=== PATIENT | female | born 1975 | race Caucasian/White ===

== ENCOUNTER 2019-10-07 12:07 | Emergency (ER) | payer BC ==
[~2019-10-07] VITALS: Ht 172.7 cm; Wt 79.1 kg
[2019-10-07 12:08] VITALS: BP 100/63
[2019-10-07] MEDS ORDERED: IBUPROFEN 800 MG TAB PO ONE (13:00)
--- NOTE | 2019-10-07 15:01 | REP ---
LEFT FOOT, FOUR VIEWS: There is no evidence of an acute fracture, dislocation or intrinsic bone disease. IMPRESSION: No fracture or dislocation. Electronically Signed by Orlin Arias MD 10/07/2019 07:06 P
== END 2019-10-07 13:36 | disposition home or self-care (01) ==
LOC: M ED 12:07
DX: S90.32XA Contusion of left foot, initial encounter (principal); Y92.89 Other specified places as the place of occurrence of the external cause; Y93.89 Activity, other specified; Y99.9 Unspecified external cause status; F17.218 Nicotine dependence, cigarettes, with other nicotine-induced disorders; F41.9 Anxiety disorder, unspecified

== ENCOUNTER 2021-01-28 18:53 | Emergency (ER) | payer BC, MEDICAID, OTHER ==
[~2021-01-28] VITALS: Ht 172.7 cm; Wt 75.8 kg
[2021-01-29] MEDS ORDERED: ONDANSETRON 4MG/2ML VIAL IV ONE (00:30)
[2021-01-29] MEDS ORDERED: NS 1,000 ML IV ONE (00:30)
[2021-01-29] MEDS ORDERED: ISOVUE-370 76% 100ML VIAL As Ordered ONE (00:36)
[2021-01-29 00:40] LABS: BASO # 0.1 10^3/uL (0.0-0.2); BASO % 0.7 % (0.0-1.0); EOS # 0.4 10^3/uL (0.0-0.5); EOS % 4.5 % (0.0-3.0); HEMATOCRIT 46.1 % (36.0-47.0); HEMOGLOBIN 15.3 g/dl (12.0-15.5); LYMPH # 3.9 10^3/uL (1.5-5.0); LYMPH % 40.4 % (24.0-44.0); MEAN CORPUSCULAR HEMOGLOBIN 31.8 pg (27.0-33.0); MEAN CORPUSCULAR HGB CONC 33.2 g/dl (32.0-36.5); MEAN CORPUSCULAR VOLUME 95.8 fl (80.0-96.0); MONO # 0.8 10^3/uL (0.0-0.8); MONO % 8.3 % (2.0-8.0); NEUTROPHILS # 4.5 10^3/uL (1.5-8.5); NEUTROPHILS % 45.9 % (36.0-66.0); PLATELET COUNT, AUTOMATED 269 10^3/uL (150-450); RED BLOOD COUNT 4.81 10^6/uL (4.00-5.40); WHITE BLOOD COUNT 9.8 10^3/uL (4.0-10.0)
[2021-01-29 01:17] LABS: ALBUMIN 4.2 GM/DL (3.2-5.2); ALT/SGPT 22 U/L (12-78); BILIRUBIN,DIRECT 0.2 MG/DL (0.0-0.2); BILIRUBIN,TOTAL 0.6 MG/DL (0.2-1.0); BLOOD UREA NITROGEN 12 MG/DL (7-18); CALCIUM LEVEL 9.1 MG/DL (8.5-10.1); CARBON DIOXIDE LEVEL 29 MEQ/L (21-32); CHLORIDE LEVEL 107 MEQ/L (98-107); CREATININE FOR GFR 0.79 MG/DL (0.55-1.30); GLOMERULAR FILTRATION RATE > 60.0 (>58); GLUCOSE, FASTING 75 MG/DL (70-100); LIPASE 179 U/L (73-393); POTASSIUM SERUM 3.8 MEQ/L (3.5-5.1); SODIUM LEVEL 140 MEQ/L (136-145); TOTAL PROTEIN 7.2 GM/DL (6.4-8.2)
--- NOTE | 2021-01-29 02:36 | REPVR ---
PROCEDURE INFORMATION: Exam: CT Abdomen And Pelvis With Contrast Exam date and time: 01/29/2021 12:30 AM Age: 45 years old Clinical indication: Abdominal pain; Localized; Left lower quadrant (llq); Additional info: Llq pain x 4days TECHNIQUE: Imaging protocol: Computed tomography of the abdomen and pelvis with contrast. Radiation optimization: All CT scans at this facility use at least one of these dose optimization techniques: automated exposure control; mA and/or kV adjustment per patient size (includes targeted exams where dose is matched to clinical indication); or iterative reconstruction. Contrast material: ISO; Contrast volume: 100 ml; Contrast route: INTRAVENOUS (IV); COMPARISON: No relevant prior studies available. FINDINGS: LUNG BASES: Minimal atelectasis and/or pulmonary parenchymal scarring. VASCULAR: No abdominoaortic aneurysm, dissection, or retroperitoneal hematoma. There is minimal atherosclerosis. PERITONEAL : No free air or free fluid. GI: No hiatal hernia. The stomach contains some fluid and gas. The stomach is not sufficiently distended to evaluate wall thickening. Non-specific fluid-filled loops of small bowel are seen. No appearance of a small-bowel obstruction. No focal mesenteric inflammation is seen. Small nonspecific mesenteric lymph nodes are noted. There is fluid within proximal portions of the colon. This could be correlated with any diarrheal illness. No pericolonic inflammatory changes seen. Portions of the distal colon and rectum appear slightly thick-walled. This is most pronounced at the sigmoid colon. This could be artifactual secondary to insufficient distention however mild colitis or mild acute diverticulitis cannot be excluded. There is diverticulosis. Follow-up with colonoscopy or fluoroscopic evaluation is advised, as an underlying sigmoid colonic lesion/neoplasia cannot be excluded by this study. HEPATOBILIARY, PANCREAS, SPLEEN: Hepatic length is 19.6 cm. Attenuation of the liver is consistent with steatosis. Surgical clips are seen in the gallbladder fossa. No biliary dilation. No pancreatic inflammation. Spleen not enlarged. ADRENALS, KIDNEYS, BLADDER, RETROPERITONEAL: Adrenals within normal limits. No hydronephrosis. Symmetric renal enhancement. No perinephric stranding or fluid. No perivesical stranding. No bladder wall thickening. PELVIC: The uterus is not visualized and may have been removed. Gas within the vagina may be iatrogenic. The ovaries are not conclusively identified by this study. MUSCULOSKELETAL: Mild superior endplate compression fracture deformity at T12 of indeterminate acuity. Mild degenerative change of the lumbar spine. Sclerosis and degenerative changes at the right sacroiliac joint noted. IMPRESSION: Mild sigmoid colonic wall thickening may be secondary to colitis or minimal diverticulitis. Gastrointestinal findings and recommendations are discussed above. T12 compression fracture deformity of indeterminate acuity. Other incidental findings discussed above. Electronically signed by: Sathya Arteaga On 01/29/2021 02:35:12 AM
[2021-01-29] MEDS ORDERED: CIPROFLOXACIN 500MG TABLET PO ONE (03:15)
[2021-01-29] MEDS ORDERED: metroNIDAZOLE (FLAGYL) 500MG TABLET PO ONE (03:15)
[2021-01-29] MEDS ORDERED: METR-265 PO (03:16)
[2021-01-29] MEDS ORDERED: ONDA4TAB6 PO (03:16)
[2021-01-29] MEDS ORDERED: KETO10TAB PO (03:16)
[2021-01-29] MEDS ORDERED: CIPR-249 PO (03:16)
[2021-01-29 03:30] VITALS: BP 133/78
== END 2021-01-29 03:54 | disposition home or self-care (01) ==
LOC: M ED 18:53
DX: K57.92 Diverticulitis of intestine, part unspecified, without perforation or abscess without bleeding (principal); Z87.891 Personal history of nicotine dependence
CPT/HCPCS: 74177; 80048; 80076; 83605; 83690; 85025; 96361; 96374; 99284; J2405; Q9967

== ENCOUNTER → 2021-03-25 | Outpatient (CLI) | payer OTHER ==
[~2021-03-25] MED LIST: CIPR-249 PO; KETO10TAB PO; METR-265 PO; ONDA4TAB6 PO
[2021-03-25 18:12] LABS: CHOLESTEROL RISK RATIO 3.636 (<5)
[2021-03-25 18:13] LABS: HEMOGLOBIN A1c 4.9 %
== END ==
LOC: M PLALAB 14:57
PROVIDERS: ATTEND Student in an Organized Health Care Education/Training Program
DX: Z13.1 Encounter for screening for diabetes mellitus (principal); Z13.220 Encounter for screening for lipoid disorders

== ENCOUNTER → 2021-03-25 | Outpatient (REF) | payer OTHER | LOC: M SFHCPLAZ 14:59 | DX: Z13.1 Encounter for screening for diabetes mellitus (principal); Z13.220 Encounter for screening for lipoid disorders ==

== ENCOUNTER → 2021-04-27 | Outpatient (CLI) | payer OTHER ==
[~2021-04-27] MED LIST changes: +ISOVUE-370 76% 100ML VIAL As Ordered ONE
--- NOTE | 2021-04-28 06:04 | REP ---
INDICATION: LT LOWER QUADRANT PAIN. COMPARISON: 01/29/2021, 12/21/2013 TECHNIQUE: Axial contrast-enhanced images from the lung bases to the pubic symphysis using 100 cc Isovue 370 intravenous contrast material. Coronal and sagittal reformations obtained. This CT examination was performed using the following dose reduction techniques: Automated exposure control, adjustment of mA and/or kv according to the patient's size, and the use of iterative reconstruction technique. FINDINGS: Liver, spleen, pancreas, bilateral adrenal glands and kidneys are normal. Evidence for prior cholecystectomy noted. The enteric system including stomach, small, and large bowel appears normal. No evidence for obstruction or acute inflammatory process. Normal terminal ileum and cecum are identified in the right lower quadrant. Sigmoid diverticulosis without evidence for acute diverticulitis. Pelvis demonstrates normal bladder and suspected prior hysterectomy. No ascites. No free air. No intraperitoneal or retroperitoneal adenopathy. Abdominal aorta and vasculature appear normal. Musculoskeletal structures are intact and without acute osseous abnormality. Subtle nonacute T12 compression deformity unchanged. IMPRESSION: No acute abdominopelvic pathology appreciated. Significant sigmoid diverticulosis without obvious acute diverticulitis. <Electronically signed by Miguel Douglas > 04/28/21 0600
== END ==
LOC: M RAD 09:02
PROVIDERS: ATTEND Surgery
DX: K57.30 Diverticulosis of large intestine without perforation or abscess without bleeding (principal)
CPT/HCPCS: 74177; Q9967

== ENCOUNTER → 2021-05-28 | Outpatient (CLI) | payer OTHER ==
[~2021-05-28] MED LIST changes: +ACET-897 PO; +CVS1CHW13 PO; -ISOVUE-370 76% 100ML VIAL As Ordered ONE
== END ==
LOC: M LABSMTC 10:44
PROVIDERS: ATTEND Anesthesiology
DX: Z01.818 Encounter for other preprocedural examination (principal); Z11.52 Encounter for screening for COVID-19

== ENCOUNTER → 2021-08-17 | Outpatient (CLI) | payer OTHER ==
[2021-08-17 13:04] LABS: HEMATOCRIT 42.5 % (36.0-47.0); MEAN CORPUSCULAR HEMOGLOBIN 32.3 pg (27.0-33.0); MEAN CORPUSCULAR HGB CONC 32.9 g/dl (32.0-36.5); MEAN CORPUSCULAR VOLUME 97.9 fl (80.0-96.0); PLATELET COUNT, AUTOMATED 254 10^3/uL (150-450); RED BLOOD COUNT 4.34 10^6/uL (4.00-5.40); WHITE BLOOD COUNT 8.5 10^3/uL (4.0-10.0)
[2021-08-17 13:33] LABS: ALBUMIN 4.1 GM/DL (3.2-5.2); ALT/SGPT 34 U/L (12-78); BILIRUBIN,TOTAL 0.6 MG/DL (0.2-1.0); BLOOD UREA NITROGEN 5 MG/DL (7-18); CALCIUM LEVEL 9.2 MG/DL (8.5-10.1); CARBON DIOXIDE LEVEL 29 MEQ/L (21-32); CHLORIDE LEVEL 107 MEQ/L (98-107); CREATININE FOR GFR 0.69 MG/DL (0.55-1.30); FREE T4 0.95 NG/DL (0.76-1.46); GLOMERULAR FILTRATION RATE > 60.0 (>58); GLUCOSE, FASTING 83 MG/DL (70-100); SODIUM LEVEL 140 MEQ/L (136-145); TOTAL PROTEIN 6.8 GM/DL (6.4-8.2)
[2021-08-17 14:07] LABS: HEMOGLOBIN A1c 4.7 %
== END ==
LOC: M LAB 12:09
PROVIDERS: ATTEND Nurse Practitioner Family
DX: R10.32 Left lower quadrant pain (principal); Z13.1 Encounter for screening for diabetes mellitus; Z13.29 Encounter for screening for other suspected endocrine disorder

== ENCOUNTER 2021-10-11 16:34 | Emergency (ER) | payer OTHER ==
[~2021-10-11] VITALS: Ht 172.7 cm; Wt 71.5 kg
[2021-10-11 19:26] VITALS: BP 147/87
== END 2021-10-11 20:03 | disposition home or self-care (01) ==
LOC: M ED 16:34
DX: S60.921A Unspecified superficial injury of right hand, initial encounter (principal); W20.8XXA Other cause of strike by thrown, projected or falling object, initial encounter; Y92.9 Unspecified place or not applicable; Y93.9 Activity, unspecified; Y99.9 Unspecified external cause status; E11.9 Type 2 diabetes mellitus without complications; Z79.4 Long term (current) use of insulin

== ENCOUNTER → 2021-10-25 | Outpatient (CLI) | payer OTHER ==
[2021-10-25 14:24] LABS: BASO # 0.1 10^3/uL (0.0-0.2); BASO % 1.1 % (0.0-1.0); EOS # 0.2 10^3/uL (0.0-0.5); EOS % 2.6 % (0.0-3.0); HEMATOCRIT 48.8 % (36.0-47.0); HEMOGLOBIN 15.8 g/dl (12.0-15.5); LYMPH # 2.2 10^3/uL (1.5-5.0); LYMPH % 33.2 % (24.0-44.0); MEAN CORPUSCULAR HEMOGLOBIN 32.2 pg (27.0-33.0); MEAN CORPUSCULAR HGB CONC 32.4 g/dl (32.0-36.5); MEAN CORPUSCULAR VOLUME 99.6 fl (80.0-96.0); MONO # 0.6 10^3/uL (0.0-0.8); MONO % 9.1 % (2.0-8.0); NEUTROPHILS # 3.5 10^3/uL (1.5-8.5); NEUTROPHILS % 53.8 % (36.0-66.0); PLATELET COUNT, AUTOMATED 285 10^3/uL (150-450); WHITE BLOOD COUNT 6.5 10^3/uL (4.0-10.0)
[2021-10-25 14:46] LABS: ALBUMIN 4.2 GM/DL (3.2-5.2); ALT/SGPT 21 U/L (12-78); BILIRUBIN,TOTAL 0.7 MG/DL (0.2-1.0); BLOOD UREA NITROGEN 11 MG/DL (7-18); CALCIUM LEVEL 9.1 MG/DL (8.5-10.1); CARBON DIOXIDE LEVEL 29 MEQ/L (21-32); CHLORIDE LEVEL 105 MEQ/L (98-107); CREATININE FOR GFR 0.85 MG/DL (0.55-1.30); GLOMERULAR FILTRATION RATE > 60.0 (>58); GLUCOSE, FASTING 76 MG/DL (70-100); POTASSIUM SERUM 4.7 MEQ/L (3.5-5.1); SODIUM LEVEL 137 MEQ/L (136-145); TOTAL PROTEIN 6.7 GM/DL (6.4-8.2)
== END ==
LOC: M PLALAB 09:52
PROVIDERS: ATTEND Nurse Practitioner
DX: N80.9 Endometriosis, unspecified (principal); R10.2 Pelvic and perineal pain

== ENCOUNTER → 2021-10-31 | Outpatient (CLI) | payer OTHER | LOC: M LABSMTC 09:59 | PROVIDERS: ATTEND Nurse Practitioner | DX: Z20.822 Contact with and (suspected) exposure to COVID-19 (principal) ==

== ENCOUNTER 2021-11-11 09:33 | Inpatient (IN) | payer OTHER ==
[~2021-11-11] VITALS: Ht 172.7 cm; Wt 70.5 kg
[2021-11-11] MEDS ORDERED: NS 1,000 ML IV ONE (10:30)
[2021-11-11] MEDS ORDERED: KETOROLAC 30 MG/ML 1ML VIAL IV ONE (10:35)
[2021-11-11] MEDS ORDERED: ONDANSETRON 4MG 2ML VIAL IV ONE (10:35)
[2021-11-11 10:57] LABS: BASO # 0.1 10^3/uL (0.0-0.2); BASO % 0.2 % (0.0-1.0); HEMATOCRIT 45.8 % (36.0-47.0); HEMOGLOBIN 15.1 g/dl (12.0-15.5); LYMPH # 2.1 10^3/uL (1.5-5.0); LYMPH % 7.2 % (24.0-44.0); MEAN CORPUSCULAR HEMOGLOBIN 31.3 pg (27.0-33.0); MONO % 7.7 % (2.0-8.0); NEUTROPHILS # 24.7 10^3/uL (1.5-8.5); PLATELET COUNT, AUTOMATED 505 10^3/uL (150-450); RED BLOOD COUNT 4.82 10^6/uL (4.00-5.40); WHITE BLOOD COUNT 29.4 10^3/uL (4.0-10.0)
[2021-11-11 11:18] LABS: MONO # 2.3 10^3/uL (0.0-0.8)
[2021-11-11 11:19] LABS: ERYTHROCYTE SEDIMENTATION RATE 33 mm/hr (0-20)
[2021-11-11 11:25] LABS: ALBUMIN 3.7 GM/DL (3.2-5.2); BILIRUBIN,DIRECT 0.4 MG/DL (0.0-0.2); BILIRUBIN,TOTAL 0.9 MG/DL (0.2-1.0); C REACTIVE PROTEIN QUANTITATIV 18.6 MG/DL (0.00-0.30); TOTAL PROTEIN 7.9 GM/DL (6.4-8.2)
[2021-11-11 11:33] LABS: AMPHETAMINES LEVEL URINE NEGATIVE (NEGATIVE); BARBITURATES URINE NEGATIVE (NEGATIVE); BENZODIAZEPINES URINE NEGATIVE (NEGATIVE); CANNABINOIDS URINE POSITIVE (NEGATIVE); COCAINE METABOLITE URINE NEGATIVE (NEGATIVE); METHADONE URINE NEGATIVE (NEGATIVE); OPIATES URINE NEGATIVE (NEGATIVE); PHENCYCLIDINE URINE NEGATIVE (NEGATIVE)
[2021-11-11] MEDS ORDERED: PIPERACILLIN/TAZOBACTAM SOD 3.375 GM in D5W MINI-BAG PLUS 50 ML IV ONE (11:50)
[2021-11-11] MEDS ORDERED: NS IV ONE (11:50)
[2021-11-11] MEDS ORDERED: ACETAMINOPHEN 325 MG TAB PO ONE (11:55)
[2021-11-11] MEDS: GASTROGRAFIN SOLUTION 30ML PO SCH ×2 (12:19→13:49)
[2021-11-11] MEDS ORDERED: ISOVUE-370 76% 100ML VIAL As Ordered ONE (13:49)
[2021-11-11 14:31] LABS: RSV AMPLIFICATION NEGATIVE (NEGATIVE)
[2021-11-11] MEDS ORDERED: METOCLOPRAMIDE INJ 10MG/2ML VIAL (J2765 PER 1) IV ONE (14:45)
[2021-11-11] MEDS ORDERED: MORPHINE 2 MG/ML 1ML VIAL IV PRN (17:05)
[2021-11-11] MEDS ORDERED: BUPIVACAINE HCL 0.25% 30ML VIAL As Ordered ONE (17:17)
[2021-11-11] MEDS ORDERED: ZOSYN 3.375GM VIAL As Ordered ONE (17:17)
[2021-11-11] MEDS ORDERED: LIDOCAINE 2% INJ 100 MG/5 ML SYRINGE As Ordered ONE (17:59)
[2021-11-11] MEDS ORDERED: dexameTHASONE 4 MG/ML 1ML VIAL (J1100 PER 1MG) As Ordered ONE (17:59)
[2021-11-11] MEDS ORDERED: MIDAZOLAM INJ 2MG/2ML VIAL (J2250 PER 1MG) As Ordered ONE (17:59)
[2021-11-11] MEDS ORDERED: propofoL 200 MG/20 ML VIAL As Ordered ONE (17:59)
[2021-11-11] MEDS ORDERED: ROCURONIUM BROMIDE 50 MG/5 ML VIAL As Ordered ONE ×3 (17:59→20:49)
[2021-11-11] MEDS ORDERED: fentaNYL 250 MCG/5 ML INJECTION As Ordered ONE (17:59)
[2021-11-11] MEDS ORDERED: ONDANSETRON 4MG 2ML VIAL As Ordered ONE (17:59)
[2021-11-11] MEDS ORDERED: SUCCINYLCHOLINE 100 MG/5 ML SYRINGE (J0330) As Ordered ONE (17:59)
[2021-11-11] MEDS: PIPERACILLIN/TAZOBACTAM SOD 3.375 GM in D5W MINI-BAG PLUS 50 ML IV SCH (18:05)
[2021-11-11] MEDS ORDERED: ACETAMINOPHEN 1000MG 100ML IV BTL (OFIRMEV) (J0131 PER 10MG) As Ordered ONE (18:58)
[2021-11-11] MEDS ORDERED: HYDROmorphone HCL 2MG/ML 1ML VIAL As Ordered ONE (19:08)
[2021-11-11] MEDS ORDERED: SUGAMMADEX SODIUM 500 MG/5 ML VIAL (BRIDION) As Ordered ONE (20:50)
[2021-11-11] MEDS ORDERED: oxyCODONE 5MG TAB PO PRN (21:30)
[2021-11-11] MEDS ORDERED: LR 1,000 ML IV SCH (21:30)
[2021-11-11] MEDS ORDERED: ONDANSETRON 4MG 2ML VIAL IV PRN (21:30)
[2021-11-11] MEDS: fentaNYL 100 MCG/2 ML INJECTION IV PRN ×4 (22:10→22:27)
[2021-11-11] MEDS: ONDANSETRON 4MG 2ML VIAL IV PRN (22:12)
[2021-11-11] MEDS: HYDROMORPHONE HCL 0.5 MG/ 0.5 ML SYRINGE (J1170 PER 1) IV PRN ×2 (22:36→22:41)
[2021-11-11 23:29] VITALS: BP 148/83
[2021-11-12] VITALS (9 sets, daily range): BP systolic 140–155; BP diastolic 80–90
[2021-11-12] MEDS: PIPERACILLIN/TAZOBACTAM SOD 3.375 GM in D5W MINI-BAG PLUS 50 ML IV SCH ×4 (00:09→18:29)
[2021-11-12] MEDS: NS 1,000 ML IV SCH ×3 (00:17→09:05)
[2021-11-12] MEDS: HYDROMORPHONE HCL 0.5 MG/ 0.5 ML SYRINGE (J1170 PER 1) IV PRN ×4 (02:48→15:19)
[2021-11-12] MEDS ORDERED: HOME MED LIST COMPLETE! XX SCH (05:05)
[2021-11-12] MEDS ORDERED: META28.32 PO (05:05)
[2021-11-12] MEDS ORDERED: IBUP80TA PO (05:05)
[2021-11-12] MEDS ORDERED: ONDA4TAB6 SL (05:05)
[2021-11-12] MEDS: ONDANSETRON 4MG 2ML VIAL IV PRN ×2 (06:03→18:29)
[2021-11-12 09:30] LABS: BASO # 0.1 10^3/uL (0.0-0.2); BASO % 0.3 % (0.0-1.0); EOS % 0.3 % (0.0-3.0); HEMATOCRIT 37.7 % (36.0-47.0); LYMPH # 2.3 10^3/uL (1.5-5.0); LYMPH % 15.8 % (24.0-44.0); MEAN CORPUSCULAR HEMOGLOBIN 30.9 pg (27.0-33.0); MEAN CORPUSCULAR HGB CONC 32.1 g/dl (32.0-36.5); MEAN CORPUSCULAR VOLUME 96.4 fl (80.0-96.0); MONO # 1.1 10^3/uL (0.0-0.8); MONO % 7.3 % (2.0-8.0); NEUTROPHILS # 11.1 10^3/uL (1.5-8.5); NEUTROPHILS % 75.7 % (36.0-66.0); PLATELET COUNT, AUTOMATED 444 10^3/uL (150-450); RED BLOOD COUNT 3.91 10^6/uL (4.00-5.40); WHITE BLOOD COUNT 14.6 10^3/uL (4.0-10.0)
[2021-11-12 09:34] LABS: HEMOGLOBIN 12.1 g/dl (12.0-15.5)
[2021-11-12 10:10] LABS: ALT/SGPT 19 U/L (12-78); BILIRUBIN,TOTAL 0.5 MG/DL (0.2-1.0); BLOOD UREA NITROGEN 15 MG/DL (7-18); CALCIUM LEVEL 7.8 MG/DL (8.5-10.1); CARBON DIOXIDE LEVEL 29 MEQ/L (21-32); CHLORIDE LEVEL 109 MEQ/L (98-107); CREATININE FOR GFR 0.59 MG/DL (0.55-1.30); GLOMERULAR FILTRATION RATE > 60.0 (>58); GLUCOSE, FASTING 89 MG/DL (70-100); POTASSIUM SERUM 3.6 MEQ/L (3.5-5.1); SODIUM LEVEL 144 MEQ/L (136-145); TOTAL PROTEIN 5.3 GM/DL (6.4-8.2)
[2021-11-12] MEDS: ENOXAPARIN 40MG/0.4ML SYRINGE (J1650 PER 10MG) SC SCH (10:43)
[2021-11-12] MEDS: KETOROLAC 30 MG/ML 1ML VIAL IV SCH ×2 (11:37→18:30)
[2021-11-12] MEDS: KCL 20MEQ IN 0.45NS 1000ML 1,000 ML IV SCH (13:45)
[2021-11-13] MEDS: PIPERACILLIN/TAZOBACTAM SOD 3.375 GM in D5W MINI-BAG PLUS 50 ML IV SCH ×5 (00:18→23:41)
[2021-11-13] MEDS: KETOROLAC 30 MG/ML 1ML VIAL IV SCH ×5 (00:19→23:42)
[2021-11-13 02:00] VITALS: BP 138/87
[2021-11-13] MEDS: KCL 20MEQ IN 0.45NS 1000ML 1,000 ML IV SCH ×2 (03:56→16:40)
[2021-11-13 06:00] VITALS: BP 124/87
[2021-11-13 08:33] LABS: BASO % 0.3 % (0.0-1.0); EOS # 0.2 10^3/uL (0.0-0.5); EOS % 1.7 % (0.0-3.0); HEMATOCRIT 33.6 % (36.0-47.0); LYMPH # 2.3 10^3/uL (1.5-5.0); LYMPH % 17.2 % (24.0-44.0); MEAN CORPUSCULAR HEMOGLOBIN 31.9 pg (27.0-33.0); MEAN CORPUSCULAR HGB CONC 32.7 g/dl (32.0-36.5); MEAN CORPUSCULAR VOLUME 97.4 fl (80.0-96.0); MONO # 0.9 10^3/uL (0.0-0.8); NEUTROPHILS # 9.7 10^3/uL (1.5-8.5); NEUTROPHILS % 72.6 % (36.0-66.0); PLATELET COUNT, AUTOMATED 408 10^3/uL (150-450); RED BLOOD COUNT 3.45 10^6/uL (4.00-5.40); WHITE BLOOD COUNT 13.4 10^3/uL (4.0-10.0)
[2021-11-13] MEDS: ENOXAPARIN 40MG/0.4ML SYRINGE (J1650 PER 10MG) SC SCH (09:07)
[2021-11-13 09:15] LABS: BLOOD UREA NITROGEN 23 MG/DL (7-18); CALCIUM LEVEL 8.6 MG/DL (8.5-10.1); CARBON DIOXIDE LEVEL 32 MEQ/L (21-32); CHLORIDE LEVEL 105 MEQ/L (98-107); CREATININE FOR GFR 0.58 MG/DL (0.55-1.30); GLOMERULAR FILTRATION RATE > 60.0 (>58); GLUCOSE, FASTING 69 MG/DL (70-100); POTASSIUM SERUM 3.8 MEQ/L (3.5-5.1); SODIUM LEVEL 144 MEQ/L (136-145)
[2021-11-13 14:00] VITALS: BP 125/84
[2021-11-13 22:00] VITALS: BP 122/75
[2021-11-13] MEDS: HYDROMORPHONE HCL 0.5 MG/ 0.5 ML SYRINGE (J1170 PER 1) IV PRN (22:10)
[2021-11-14 02:00] VITALS: BP 123/82
[2021-11-14] MEDS: KETOROLAC 30 MG/ML 1ML VIAL IV SCH ×3 (05:36→17:33)
[2021-11-14 06:00] VITALS: BP 138/81
[2021-11-14] MEDS: PIPERACILLIN/TAZOBACTAM SOD 3.375 GM in D5W MINI-BAG PLUS 50 ML IV SCH ×3 (06:07→17:33)
[2021-11-14] MEDS: ENOXAPARIN 40MG/0.4ML SYRINGE (J1650 PER 10MG) SC SCH (09:00)
[2021-11-14] MEDS: KCL 20MEQ IN 0.45NS 1000ML 1,000 ML IV SCH (09:00)
[2021-11-14 10:00] VITALS: BP 124/69
[2021-11-14 14:00] VITALS: BP 150/80
[2021-11-14] MEDS ORDERED: LORazepam 1 MG TAB PO PRN (15:40)
[2021-11-14 18:00] VITALS: BP 135/77
[2021-11-14 20:51] VITALS: BP 143/82
[2021-11-15] MEDS: KCL 20MEQ IN 0.45NS 1000ML 1,000 ML IV SCH ×2 (00:15→09:41)
[2021-11-15] MEDS: KETOROLAC 30 MG/ML 1ML VIAL IV SCH ×5 (00:30→23:04)
[2021-11-15] MEDS: PIPERACILLIN/TAZOBACTAM SOD 3.375 GM in D5W MINI-BAG PLUS 50 ML IV SCH ×5 (00:31→23:04)
[2021-11-15 02:00] VITALS: BP 141/80
[2021-11-15 04:53] VITALS: BP 139/80
[2021-11-15] MEDS: ENOXAPARIN 40MG/0.4ML SYRINGE (J1650 PER 10MG) SC SCH (09:41)
[2021-11-15 10:00] VITALS: BP 140/78
[2021-11-15] MEDS ORDERED: KCL 20MEQ IN D5/0.45NS 1000ML 1,000 ML IV SCH (10:00)
[2021-11-15] MEDS: PANTOPRAZOLE 40MG VIAL IV SCH ×2 (11:09→20:42)
[2021-11-15] MEDS ORDERED: LIDOCAINE 1% MDV 20ML VIAL As Ordered ONE (14:09)
[2021-11-15 16:00] VITALS: BP 123/75
[2021-11-15] MEDS: ONDANSETRON 4MG 2ML VIAL IV PRN (17:11)
[2021-11-15] MEDS ORDERED: AMINO AC/ELECTROLYTE/DEX/CALC 2,566 ML IV SCH (18:00)
[2021-11-15] MEDS: SODIUM CHLORIDE 0.9% INJ 10 ML SYR IV SCH (18:00)
[2021-11-15] MEDS: INSULIN LISPRO (NovoLOG) PER UNIT SC SCH (18:00)
[2021-11-15 18:30] VITALS: BP 117/75
[2021-11-15] MEDS: SUCRALFATE SUSP 1GM/10ML UD PO SCH ×2 (19:00→23:04)
[2021-11-15 20:37] VITALS: BP 119/75
[2021-11-15] MEDS: SODIUM CHLORIDE 0.9% INJ 10 ML SYR IV PRN (20:44)
[2021-11-16] VITALS (13 sets, daily range): BP systolic 110–127; BP diastolic 60–76
[2021-11-16] MEDS: SODIUM CHLORIDE 0.9% INJ 10 ML SYR IV PRN ×3 (00:49→12:59)
[2021-11-16] MEDS: SUCRALFATE SUSP 1GM/10ML UD PO SCH ×3 (05:37→17:43)
[2021-11-16] MEDS: KETOROLAC 30 MG/ML 1ML VIAL IV SCH ×3 (05:38→17:43)
[2021-11-16] MEDS: PIPERACILLIN/TAZOBACTAM SOD 3.375 GM in D5W MINI-BAG PLUS 50 ML IV SCH ×3 (05:38→17:44)
[2021-11-16] MEDS: INSULIN LISPRO (NovoLOG) PER UNIT SC SCH ×4 (06:13→18:00)
[2021-11-16 06:26] LABS: BASO % 0.3 % (0.0-1.0); EOS # 0.4 10^3/uL (0.0-0.5); EOS % 3.2 % (0.0-3.0); HEMATOCRIT 24.7 % (36.0-47.0); LYMPH # 2.3 10^3/uL (1.5-5.0); LYMPH % 17.7 % (24.0-44.0); MEAN CORPUSCULAR HEMOGLOBIN 32.1 pg (27.0-33.0); MEAN CORPUSCULAR HGB CONC 32.4 g/dl (32.0-36.5); MEAN CORPUSCULAR VOLUME 99.2 fl (80.0-96.0); MONO # 0.9 10^3/uL (0.0-0.8); MONO % 6.6 % (2.0-8.0); NEUTROPHILS # 9.3 10^3/uL (1.5-8.5); NEUTROPHILS % 71.3 % (36.0-66.0); PLATELET COUNT, AUTOMATED 470 10^3/uL (150-450); RED BLOOD COUNT 2.49 10^6/uL (4.00-5.40)
[2021-11-16 06:57] LABS: BLOOD UREA NITROGEN 26 MG/DL (7-18); CALCIUM LEVEL 7.8 MG/DL (8.5-10.1); CARBON DIOXIDE LEVEL 31 MEQ/L (21-32); CHLORIDE LEVEL 106 MEQ/L (98-107); CREATININE FOR GFR 0.53 MG/DL (0.55-1.30); GLOMERULAR FILTRATION RATE > 60.0 (>58); GLUCOSE, FASTING 123 MG/DL (70-100); POTASSIUM SERUM 3.7 MEQ/L (3.5-5.1); SODIUM LEVEL 140 MEQ/L (136-145)
[2021-11-16] MEDS: SODIUM CHLORIDE 0.9% INJ 10 ML SYR IV SCH ×2 (07:08→17:44)
[2021-11-16] MEDS: PANTOPRAZOLE 40MG VIAL IV SCH ×2 (09:24→21:44)
[2021-11-16] MEDS: ENOXAPARIN 40MG/0.4ML SYRINGE (J1650 PER 10MG) SC SCH (09:25)
[2021-11-16 12:38] LABS: HEMATOCRIT 24.8 % (36.0-47.0); HEMOGLOBIN 7.9 g/dl (12.0-15.5)
[2021-11-16] MEDS ORDERED: AMINO AC/ELECTROLYTE/DEX/CALC 2,566 ML IV SCH (18:00)
[2021-11-17] MEDS: SUCRALFATE SUSP 1GM/10ML UD PO SCH ×5 (00:28→23:19)
[2021-11-17] MEDS: KETOROLAC 30 MG/ML 1ML VIAL IV SCH ×2 (00:28→06:19)
[2021-11-17] MEDS: PIPERACILLIN/TAZOBACTAM SOD 3.375 GM in D5W MINI-BAG PLUS 50 ML IV SCH ×5 (00:29→23:19)
[2021-11-17 05:42] LABS: BASO # 0.1 10^3/uL (0.0-0.2); BASO % 0.4 % (0.0-1.0); EOS # 0.4 10^3/uL (0.0-0.5); EOS % 3.7 % (0.0-3.0); HEMATOCRIT 28.2 % (36.0-47.0); HEMOGLOBIN 9.3 g/dl (12.0-15.5); LYMPH # 2.8 10^3/uL (1.5-5.0); LYMPH % 25.1 % (24.0-44.0); MEAN CORPUSCULAR HEMOGLOBIN 31.1 pg (27.0-33.0); MEAN CORPUSCULAR VOLUME 94.3 fl (80.0-96.0); MONO # 0.8 10^3/uL (0.0-0.8); MONO % 7.1 % (2.0-8.0); NEUTROPHILS # 7.1 10^3/uL (1.5-8.5); PLATELET COUNT, AUTOMATED 438 10^3/uL (150-450); RED BLOOD COUNT 2.99 10^6/uL (4.00-5.40); WHITE BLOOD COUNT 11.2 10^3/uL (4.0-10.0)
[2021-11-17 05:58] LABS: BLOOD UREA NITROGEN 14 MG/DL (7-18); C REACTIVE PROTEIN QUANTITATIV 1.66 MG/DL (0.00-0.30); CALCIUM LEVEL 7.7 MG/DL (8.5-10.1); CARBON DIOXIDE LEVEL 26 MEQ/L (21-32); CHLORIDE LEVEL 110 MEQ/L (98-107); CREATININE FOR GFR 0.47 MG/DL (0.55-1.30); GLOMERULAR FILTRATION RATE > 60.0 (>58); GLUCOSE, FASTING 103 MG/DL (70-100); SODIUM LEVEL 140 MEQ/L (136-145)
[2021-11-17 06:00] VITALS: BP 129/75
[2021-11-17] MEDS: INSULIN LISPRO (NovoLOG) PER UNIT SC SCH ×6 (06:00→23:30)
[2021-11-17] MEDS: SODIUM CHLORIDE 0.9% INJ 10 ML SYR IV SCH ×2 (06:00→17:59)
[2021-11-17] MEDS: PANTOPRAZOLE 40MG VIAL IV SCH ×2 (09:00→20:11)
[2021-11-17 10:00] VITALS: BP 162/70
[2021-11-17] MEDS: SODIUM CHLORIDE 0.9% INJ 10 ML SYR IV PRN ×2 (12:01→18:57)
[2021-11-17] MEDS: ENOXAPARIN 40MG/0.4ML SYRINGE (J1650 PER 10MG) SC SCH (12:02)
[2021-11-17 14:00] VITALS: BP 114/78
[2021-11-17 18:00] VITALS: BP 129/76
[2021-11-17] MEDS ORDERED: MULTIVITAMIN -ADULT INJECTION 10 ML, ZINC/COPPER/MANGANESE/SELENIUM 1 ML in AMINO AC/EL... IV SCH (18:00)
[2021-11-17 22:00] VITALS: BP 130/75
[2021-11-18 02:00] VITALS: BP 130/77
[2021-11-18] MEDS: INSULIN LISPRO (NovoLOG) PER UNIT SC SCH ×3 (05:04→18:00)
[2021-11-18] MEDS: SUCRALFATE SUSP 1GM/10ML UD PO SCH ×3 (05:32→18:40)
[2021-11-18] MEDS: PIPERACILLIN/TAZOBACTAM SOD 3.375 GM in D5W MINI-BAG PLUS 50 ML IV SCH ×3 (05:32→18:41)
[2021-11-18] MEDS: SODIUM CHLORIDE 0.9% INJ 10 ML SYR IV SCH ×2 (05:33→18:41)
[2021-11-18 06:00] VITALS: BP 129/77
[2021-11-18 06:02] LABS: BASO # 0.1 10^3/uL (0.0-0.2); BASO % 0.6 % (0.0-1.0); EOS # 0.5 10^3/uL (0.0-0.5); EOS % 4.6 % (0.0-3.0); HEMOGLOBIN 9.6 g/dl (12.0-15.5); LYMPH # 2.3 10^3/uL (1.5-5.0); LYMPH % 21.7 % (24.0-44.0); MEAN CORPUSCULAR HEMOGLOBIN 30.7 pg (27.0-33.0); MEAN CORPUSCULAR HGB CONC 33.1 g/dl (32.0-36.5); MEAN CORPUSCULAR VOLUME 92.7 fl (80.0-96.0); MONO # 0.8 10^3/uL (0.0-0.8); MONO % 7.7 % (2.0-8.0); NEUTROPHILS # 6.8 10^3/uL (1.5-8.5); NEUTROPHILS % 64.8 % (36.0-66.0); PLATELET COUNT, AUTOMATED 489 10^3/uL (150-450); RED BLOOD COUNT 3.13 10^6/uL (4.00-5.40); WHITE BLOOD COUNT 10.5 10^3/uL (4.0-10.0)
[2021-11-18 06:19] LABS: BLOOD UREA NITROGEN 10 MG/DL (7-18); C REACTIVE PROTEIN QUANTITATIV 0.96 MG/DL (0.00-0.30); CALCIUM LEVEL 8.7 MG/DL (8.5-10.1); CARBON DIOXIDE LEVEL 30 MEQ/L (21-32); CHLORIDE LEVEL 107 MEQ/L (98-107); CREATININE FOR GFR 0.53 MG/DL (0.55-1.30); GLOMERULAR FILTRATION RATE > 60.0 (>58); GLUCOSE, FASTING 98 MG/DL (70-100); POTASSIUM SERUM 4.3 MEQ/L (3.5-5.1); SODIUM LEVEL 140 MEQ/L (136-145)
[2021-11-18] MEDS: ENOXAPARIN 40MG/0.4ML SYRINGE (J1650 PER 10MG) SC SCH (09:06)
[2021-11-18] MEDS: PANTOPRAZOLE 40MG VIAL IV SCH ×2 (09:06→20:14)
[2021-11-18 10:00] VITALS: BP 165/85
[2021-11-18 14:00] VITALS: BP 114/75
[2021-11-18 18:00] VITALS: BP 116/71
[2021-11-18] MEDS ORDERED: AMINO AC/ELECTROLYTE/DEX/CALC 2,566 ML IV SCH (18:00)
[2021-11-18 21:29] VITALS: BP 114/67
[2021-11-19] MEDS ORDERED: ACETAMINOPHEN 500 MG TAB PO PRN (00:20)
[2021-11-19] MEDS: SUCRALFATE SUSP 1GM/10ML UD PO SCH ×2 (00:35→05:36)
[2021-11-19] MEDS: PIPERACILLIN/TAZOBACTAM SOD 3.375 GM in D5W MINI-BAG PLUS 50 ML IV SCH ×2 (00:36→05:36)
[2021-11-19 02:00] VITALS: BP 130/81
[2021-11-19 05:11] VITALS: BP 124/78
[2021-11-19] MEDS: SODIUM CHLORIDE 0.9% INJ 10 ML SYR IV SCH ×2 (05:36→17:17)
[2021-11-19] MEDS: INSULIN LISPRO (NovoLOG) PER UNIT SC SCH ×3 (05:47→12:00)
[2021-11-19] MEDS: ENOXAPARIN 40MG/0.4ML SYRINGE (J1650 PER 10MG) SC SCH (08:18)
[2021-11-19] MEDS: PANTOPRAZOLE 40MG VIAL IV SCH (08:18)
[2021-11-19 10:00] VITALS: BP 133/78
[2021-11-19 14:00] VITALS: BP 120/77
[2021-11-19] MEDS: metroNIDAZOLE (FLAGYL) 500MG TABLET PO SCH ×2 (14:56→20:59)
[2021-11-19] MEDS: CIPROFLOXACIN 500MG TABLET PO SCH (17:17)
[2021-11-19 18:00] VITALS: BP 122/78
[2021-11-19 22:00] VITALS: BP 110/58
[2021-11-20 02:00] VITALS: BP 108/66
[2021-11-20] MEDS: CIPROFLOXACIN 500MG TABLET PO SCH ×2 (05:03→17:52)
[2021-11-20] MEDS: metroNIDAZOLE (FLAGYL) 500MG TABLET PO SCH ×3 (05:03→21:35)
[2021-11-20] MEDS: SODIUM CHLORIDE 0.9% INJ 10 ML SYR IV SCH ×2 (05:03→17:53)
[2021-11-20 06:00] VITALS: BP 108/67
[2021-11-20 06:44] LABS: BASO # 0.1 10^3/uL (0.0-0.2); BASO % 0.5 % (0.0-1.0); EOS # 0.4 10^3/uL (0.0-0.5); EOS % 3.6 % (0.0-3.0); HEMOGLOBIN 10.5 g/dl (12.0-15.5); LYMPH # 2.2 10^3/uL (1.5-5.0); LYMPH % 21.7 % (24.0-44.0); MEAN CORPUSCULAR HEMOGLOBIN 30.8 pg (27.0-33.0); MEAN CORPUSCULAR HGB CONC 32.8 g/dl (32.0-36.5); MEAN CORPUSCULAR VOLUME 93.8 fl (80.0-96.0); MONO # 0.9 10^3/uL (0.0-0.8); MONO % 9.2 % (2.0-8.0); NEUTROPHILS # 6.4 10^3/uL (1.5-8.5); NEUTROPHILS % 64.4 % (36.0-66.0); PLATELET COUNT, AUTOMATED 638 10^3/uL (150-450); RED BLOOD COUNT 3.41 10^6/uL (4.00-5.40); WHITE BLOOD COUNT 9.9 10^3/uL (4.0-10.0)
[2021-11-20 07:07] LABS: BLOOD UREA NITROGEN 12 MG/DL (7-18); C REACTIVE PROTEIN QUANTITATIV 0.69 MG/DL (0.00-0.30); CARBON DIOXIDE LEVEL 26 MEQ/L (21-32); CHLORIDE LEVEL 108 MEQ/L (98-107); CREATININE FOR GFR 0.64 MG/DL (0.55-1.30); GLOMERULAR FILTRATION RATE > 60.0 (>58); GLUCOSE, FASTING 87 MG/DL (70-100); POTASSIUM SERUM 4.5 MEQ/L (3.5-5.1); SODIUM LEVEL 141 MEQ/L (136-145)
[2021-11-20] MEDS: PANTOPRAZOLE 40MG TAB (PROTONIX) PO SCH (08:32)
[2021-11-20] MEDS: ENOXAPARIN 40MG/0.4ML SYRINGE (J1650 PER 10MG) SC SCH (08:33)
[2021-11-20 10:00] VITALS: BP 124/78
[2021-11-20 14:00] VITALS: BP 114/68
[2021-11-20 22:52] VITALS: BP 89/61
[2021-11-20 22:53] VITALS: BP 98/62
[2021-11-21 01:16] VITALS: BP 96/60
[2021-11-21 05:00] VITALS: BP 125/69
[2021-11-21] MEDS: SODIUM CHLORIDE 0.9% INJ 10 ML SYR IV SCH (05:06)
[2021-11-21] MEDS: metroNIDAZOLE (FLAGYL) 500MG TABLET PO SCH ×2 (05:07→14:45)
[2021-11-21] MEDS: CIPROFLOXACIN 500MG TABLET PO SCH (05:07)
[2021-11-21 06:13] LABS: BASO # 0.1 10^3/uL (0.0-0.2); BASO % 0.7 % (0.0-1.0); EOS # 0.4 10^3/uL (0.0-0.5); EOS % 3.8 % (0.0-3.0); HEMOGLOBIN 11.2 g/dl (12.0-15.5); LYMPH # 2.6 10^3/uL (1.5-5.0); LYMPH % 27.1 % (24.0-44.0); MEAN CORPUSCULAR HEMOGLOBIN 31.8 pg (27.0-33.0); MEAN CORPUSCULAR HGB CONC 32.9 g/dl (32.0-36.5); MEAN CORPUSCULAR VOLUME 96.6 fl (80.0-96.0); MONO # 0.9 10^3/uL (0.0-0.8); MONO % 9.9 % (2.0-8.0); NEUTROPHILS # 5.5 10^3/uL (1.5-8.5); NEUTROPHILS % 57.9 % (36.0-66.0); PLATELET COUNT, AUTOMATED 724 10^3/uL (150-450); RED BLOOD COUNT 3.52 10^6/uL (4.00-5.40); WHITE BLOOD COUNT 9.5 10^3/uL (4.0-10.0)
[2021-11-21 06:31] LABS: BLOOD UREA NITROGEN 11 MG/DL (7-18); C REACTIVE PROTEIN QUANTITATIV 0.91 MG/DL (0.00-0.30); CARBON DIOXIDE LEVEL 27 MEQ/L (21-32); CHLORIDE LEVEL 105 MEQ/L (98-107); CREATININE FOR GFR 0.75 MG/DL (0.55-1.30); GLOMERULAR FILTRATION RATE > 60.0 (>58); GLUCOSE, FASTING 89 MG/DL (70-100); POTASSIUM SERUM 4.7 MEQ/L (3.5-5.1); SODIUM LEVEL 139 MEQ/L (136-145)
[2021-11-21] MEDS: PANTOPRAZOLE 40MG TAB (PROTONIX) PO SCH (10:15)
[2021-11-21] MEDS: ENOXAPARIN 40MG/0.4ML SYRINGE (J1650 PER 10MG) SC SCH (10:15)
[2021-11-21] MEDS ORDERED: CIPR-249 PO (11:13)
[2021-11-21] MEDS ORDERED: METR-265 PO (11:13)
== END 2021-11-21 15:15 | disposition home or self-care (01) | DRG 791 ==
LOC: EDBD 09:33 → M ED 09:33 → M SDC 17:03 → M MSPAV 17:07
PROVIDERS: ADMIT Surgery; ATTEND Surgery
PROC: 0D1L0Z4 Bypass Transverse Colon to Cutaneous, Open Approach (ICD-10-PCS; 2021-11-11)
PROC: 0DBM0ZZ Excision of Descending Colon, Open Approach (ICD-10-PCS; 2021-11-11)
PROC: 0DBL0ZZ Excision of Transverse Colon, Open Approach (ICD-10-PCS; principal; 2021-11-11 17:00)
PROC: 02HV33Z Insertion of Infusion Device into Superior Vena Cava, Percutaneous Approach (ICD-10-PCS; 2021-11-15)
PROC: 30233N1 Transfusion of Nonautologous Red Blood Cells into Peripheral Vein, Percutaneous Approach (ICD-10-PCS; 2021-11-16)
DX: K91.72 Accidental puncture and laceration of a digestive system organ or structure during other procedure (principal); K25.4 Chronic or unspecified gastric ulcer with hemorrhage; K63.0 Abscess of intestine; K91.2 Postsurgical malabsorption, not elsewhere classified; K91.871 Postprocedural hematoma of a digestive system organ or structure following other procedure; K66.0 Peritoneal adhesions (postprocedural) (postinfection); Y83.6 Removal of other organ (partial) (total) as the cause of abnormal reaction of the patient, or of later complication, without mention of misadventure at the time of the procedure; Z53.31 Laparoscopic surgical procedure converted to open procedure

== ENCOUNTER → 2021-11-23 | Outpatient (REF) | payer OTHER ==
[~2021-11-23] MED LIST changes: +IBUP80TA PO; +META28.32 PO; +ONDA4TAB6 SL
[2021-11-24 12:15] LABS: APPEARANCE, URINE HAZY (CLEAR); BACTERIA, URINE AUTO NEGATIVE (NEGATIVE); BILIRUBIN, URINE AUTO NEGATIVE (NEGATIVE); BLOOD, URINE BLOOD NEGATIVE (NEGATIVE); COLOR, URINE AMBER (YELLOW); GLUCOSE, URINE (UA) AUTO NEGATIVE (NEGATIVE); KETONE, URINE AUTO NEGATIVE (NEGATIVE); LEUKOCYTE ESTERASE, URINE AUTO TRACE (NEGATIVE); MUCUS, URINE SMALL (NEGATIVE); NITRITE, URINE AUTO NEGATIVE (NEGATIVE); PROTEIN, URINE AUTO NEGATIVE (NEGATIVE); RBC, URINE AUTO 1 /HPF (0-3); SPECIFIC GRAVITY URINE AUTO 1.019 (1.002-1.035); SQUAMOUS EPITHELIAL CELL UR AU 1 /HPF (0-6); UROBILINOGEN, URINE AUTO 0.2 mg/dL (0.0-2.0); WBC, URINE AUTO 1 /HPF (0-3)
== END ==
LOC: M SFHCCLAY 11:48
PROVIDERS: ATTEND Physician Assistant
DX: N89.8 Other specified noninflammatory disorders of vagina (principal)

== ENCOUNTER → 2022-03-09 | Outpatient (CLI) | payer OTHER ==
[~2022-03-09] MED LIST changes: +GASTROGRAFIN SOLUTION 30ML (Q9963) As Ordered ONE; +ISOVUE-370 76% 100ML VIAL As Ordered ONE
== END ==
LOC: M RAD 14:51
PROVIDERS: ATTEND Surgery
DX: Z93.3 Colostomy status (principal)
CPT/HCPCS: 74177; Q9963; Q9967

== ENCOUNTER → 2022-05-23 | Outpatient (CLI) | payer OTHER ==
[~2022-05-23] MED LIST changes: -GASTROGRAFIN SOLUTION 30ML (Q9963) As Ordered ONE; -ISOVUE-370 76% 100ML VIAL As Ordered ONE
== END ==
LOC: M LABSMTC 10:30
PROVIDERS: ATTEND Anesthesiology
DX: Z01.812 Encounter for preprocedural laboratory examination (principal); Z11.52 Encounter for screening for COVID-19

== ENCOUNTER → 2022-05-24 | Outpatient (CLI) | payer OTHER | LOC: M CLY 09:12 | PROVIDERS: ATTEND Nurse Practitioner Family | DX: Z01.818 Encounter for other preprocedural examination (principal) ==

== ENCOUNTER → 2022-05-24 | Outpatient (REF) | payer OTHER ==
[2022-05-24 11:47] LABS: HEMATOCRIT 43.4 % (36.0-47.0); HEMOGLOBIN 13.5 g/dl (12.0-15.5); MEAN CORPUSCULAR HEMOGLOBIN 30.7 pg (27.0-33.0); MEAN CORPUSCULAR HGB CONC 31.1 g/dl (32.0-36.5); MEAN CORPUSCULAR VOLUME 98.6 fl (80.0-96.0); PLATELET COUNT, AUTOMATED 271 10^3/uL (150-450)
[2022-05-24 11:52] LABS: INR 0.93; PROTHROMBIN TIME 12.7 SECONDS (12.5-14.5)
[2022-05-24 12:14] LABS: ALBUMIN 4.2 G/DL (3.2-5.2); ALKALINE PHOSPHATASE 62 U/L (46-116); ALT/SGPT 13 U/L (7.0-40); AST/SGOT 14 U/L (<34); BILIRUBIN,TOTAL 0.5 MG/DL (0.3-1.2); BLOOD UREA NITROGEN 11 MG/DL (9-23); CALCIUM LEVEL 9.7 MG/DL (8.5-10.1); CARBON DIOXIDE LEVEL 26 MMOL/L (20-31); CHLORIDE LEVEL 104 MMOL/L (98-107); CREATININE FOR GFR 0.66 MG/DL (0.55-1.30); GLOMERULAR FILTRATION RATE > 60.0 (>58); GLUCOSE, FASTING 75 MG/DL (60-100); POTASSIUM SERUM 4.5 MMOL/L (3.5-5.1); SODIUM LEVEL 142 MMOL/L (136-145); TOTAL PROTEIN 6.9 G/DL (5.7-8.2)
== END ==
LOC: M SFHCCLAY 08:57
PROVIDERS: ATTEND Nurse Practitioner Family
DX: Z01.818 Encounter for other preprocedural examination (principal)

== ENCOUNTER 2022-06-23 11:03 | Emergency (ER) | payer OTHER ==
[~2022-06-23] VITALS: Ht 172.7 cm; Wt 72.7 kg
[~2022-06-23 11:03] MED LIST changes: +FAMO20TA5 PO; +HYDR-3715 PO
[2022-06-23 11:04] VITALS: BP 112/61
[2022-06-23 12:58] LABS: BASO % 0.7 % (0.0-1.0); EOS # 0.3 10^3/uL (0.0-0.5); EOS % 5.2 % (0.0-3.0); HEMATOCRIT 36.9 % (36.0-47.0); HEMOGLOBIN 11.4 g/dl (12.0-15.5); LYMPH # 2.5 10^3/uL (1.5-5.0); LYMPH % 45.1 % (24.0-44.0); MEAN CORPUSCULAR HEMOGLOBIN 29.8 pg (27.0-33.0); MEAN CORPUSCULAR HGB CONC 30.9 g/dl (32.0-36.5); MEAN CORPUSCULAR VOLUME 96.6 fl (80.0-96.0); MONO # 0.5 10^3/uL (0.0-0.8); MONO % 8.3 % (2.0-8.0); NEUTROPHILS # 2.3 10^3/uL (1.5-8.5); NEUTROPHILS % 40.5 % (36.0-66.0); PLATELET COUNT, AUTOMATED 304 10^3/uL (150-450); RED BLOOD COUNT 3.82 10^6/uL (4.00-5.40); WHITE BLOOD COUNT 5.6 10^3/uL (4.0-10.0)
[2022-06-23] MEDS: GASTROGRAFIN SOLUTION 30ML PO SCH ×2 (13:14→13:45)
[2022-06-23 13:15] LABS: ERYTHROCYTE SEDIMENTATION RATE 9 mm/hr (0-20)
[2022-06-23 13:21] LABS: C REACTIVE PROTEIN QUANTITATIV < 0.40 MG/DL (<1.0)
[2022-06-23 13:23] LABS: BLOOD UREA NITROGEN 11 MG/DL (9-23); CALCIUM LEVEL 8.6 MG/DL (8.5-10.1); CARBON DIOXIDE LEVEL 30 MMOL/L (20-31); CHLORIDE LEVEL 105 MMOL/L (98-107); CREATININE FOR GFR 0.63 MG/DL (0.55-1.30); GLOMERULAR FILTRATION RATE > 60.0 (>58); GLUCOSE, FASTING 72 MG/DL (60-100); POTASSIUM SERUM 4.1 MMOL/L (3.5-5.1); SODIUM LEVEL 140 MMOL/L (136-145)
[2022-06-23] MEDS ORDERED: ISOVUE-370 76% 100ML VIAL As Ordered ONE (14:39)
== END 2022-06-23 17:14 | disposition left against medical advice (07) ==
LOC: M ED 11:03
DX: T81.40XA Infection following a procedure, unspecified, initial encounter (principal); Z53.20 Procedure and treatment not carried out because of patient's decision for unspecified reasons; Z90.49 Acquired absence of other specified parts of digestive tract; M51.37 Other intervertebral disc degeneration, lumbosacral region; M51.44 Schmorl's nodes, thoracic region; Z88.5 Allergy status to narcotic agent; Z88.8 Allergy status to other drugs, medicaments and biological substances; Z90.710 Acquired absence of both cervix and uterus; F31.9 Bipolar disorder, unspecified; Z79.899 Other long term (current) drug therapy

== ENCOUNTER → 2023-03-28 | Outpatient (REF) | payer OTHER | LOC: M SFHCCLAY 11:26 | PROVIDERS: ATTEND Physician Assistant | DX: N39.0 Urinary tract infection, site not specified (principal) ==

== ENCOUNTER 2023-04-12 10:23 | Emergency (ER) | payer OTHER ==
[~2023-04-12] VITALS: Ht 172.7 cm; Wt 85.4 kg
[2023-04-12 11:39] LABS: BASO # 0.1 10^3/uL (0.0-0.2); BASO % 0.6 % (0.0-1.0); EOS # 0.3 10^3/uL (0.0-0.5); EOS % 3.4 % (0.0-3.0); HEMATOCRIT 43.3 % (36.0-47.0); HEMOGLOBIN 14.2 g/dl (12.0-15.5); LYMPH # 1.3 10^3/uL (1.5-5.0); LYMPH % 15.1 % (24.0-44.0); MEAN CORPUSCULAR HEMOGLOBIN 30.7 pg (27.0-33.0); MEAN CORPUSCULAR HGB CONC 32.8 g/dl (32.0-36.5); MEAN CORPUSCULAR VOLUME 93.5 fl (80.0-96.0); MONO # 0.7 10^3/uL (0.0-0.8); MONO % 8.2 % (2.0-8.0); NEUTROPHILS # 6.2 10^3/uL (1.5-8.5); NEUTROPHILS % 72.5 % (36.0-66.0); PLATELET COUNT, AUTOMATED 266 10^3/uL (150-450); RED BLOOD COUNT 4.63 10^6/uL (4.00-5.40); WHITE BLOOD COUNT 8.6 10^3/uL (4.0-10.0)
[2023-04-12] MEDS ORDERED: ONDANSETRON 4MG 2ML VIAL IV ONE (12:00)
[2023-04-12] MEDS ORDERED: NS 1,000 ML IV ONE (12:00)
[2023-04-12] MEDS ORDERED: fentaNYL 100 MCG/2 ML INJECTION IV ONE (12:00)
[2023-04-12] MEDS ORDERED: ISOVUE-370 76% 100ML VIAL As Ordered ONE (12:09)
[2023-04-12 12:10] LABS: LIPASE 52 U/L (12-53)
[2023-04-12 12:13] LABS: ALBUMIN 4.2 G/DL (3.2-5.2); ALKALINE PHOSPHATASE 72 U/L (46-116); ALT/SGPT 16 U/L (7.0-40); AST/SGOT 9 U/L (<34); BILIRUBIN,DIRECT 0.1 MG/DL (<0.4); BILIRUBIN,TOTAL 0.3 MG/DL (0.3-1.2); BLOOD UREA NITROGEN 8 MG/DL (9-23); CALCIUM LEVEL 9.3 MG/DL (8.5-10.1); CARBON DIOXIDE LEVEL 27 MMOL/L (20-31); CHLORIDE LEVEL 108 MMOL/L (98-107); CREATININE FOR GFR 0.62 MG/DL (0.55-1.30); GLOMERULAR FILTRATION RATE > 60.0 (>58); GLUCOSE, FASTING 69 MG/DL (60-100); SODIUM LEVEL 143 MMOL/L (136-145); TOTAL PROTEIN 7.3 G/DL (5.7-8.2)
[2023-04-12 12:25] LABS: HCG, SERUM QUALITATIVE NEGATIVE (NEGATIVE)
[2023-04-12] MEDS ORDERED: KETOROLAC 30 MG/ML 1ML VIAL IV ONE (12:45)
[2023-04-12] MEDS ORDERED: AUGMENTIN 875 MG TAB PO ONE (13:25)
[2023-04-12] MEDS ORDERED: COLA100C5 PO (13:32)
[2023-04-12] MEDS ORDERED: AMOX875T2 PO (13:32)
[2023-04-12] MEDS ORDERED: REGL10TA6 PO (13:32)
[2023-04-12 13:39] LABS: RSV AMPLIFICATION NEGATIVE (NEGATIVE)
[2023-04-12 14:02] VITALS: BP 130/85; TEMP 97.3; O2SAT 98
== END 2023-04-12 14:05 | disposition home or self-care (01) ==
LOC: M ED 10:23
DX: K59.00 Constipation, unspecified (principal); K57.92 Diverticulitis of intestine, part unspecified, without perforation or abscess without bleeding; U07.1 COVID-19; R51.9 Headache, unspecified; J45.909 Unspecified asthma, uncomplicated; F12.90 Cannabis use, unspecified, uncomplicated
CPT/HCPCS: 74177; 80047; 80048; 80076; 83690; 84703; 85025; 87631; 96374; 96375; 99284; J1885; J2405; J3010; Q9967

== ENCOUNTER → 2023-04-27 | Outpatient (REF) | payer OTHER ==
[~2023-04-27] MED LIST changes: +AMOX875T2 PO; +COLA100C5 PO; +REGL10TA6 PO
== END ==
LOC: M SFHCCLAY 17:04
PROVIDERS: ATTEND Nurse Practitioner Family
DX: R19.7 Diarrhea, unspecified (principal)

== ENCOUNTER 2024-05-03 12:12 | Emergency (ER) | payer OTHER ==
[~2024-05-03] VITALS: Ht 172.7 cm; Wt 82.4 kg
[~2024-05-03 12:12] MED LIST changes: +ONDA-282 PO; +ONDA-282 SL; -ONDA4TAB6 PO; -ONDA4TAB6 SL
[2024-05-03 13:17] LABS: BASO # 0.1 10^3/uL (0.0-0.2); BASO % 0.7 % (0.0-1.0); EOS # 0.2 10^3/uL (0.0-0.5); EOS % 3.2 % (0.0-3.0); HEMATOCRIT 44.4 % (36.0-47.0); HEMOGLOBIN 14.8 g/dl (12.0-15.5); LYMPH # 2.4 10^3/uL (1.5-5.0); LYMPH % 31.2 % (24.0-44.0); MEAN CORPUSCULAR HEMOGLOBIN 30.5 pg (27.0-33.0); MEAN CORPUSCULAR HGB CONC 33.3 g/dl (32.0-36.5); MEAN CORPUSCULAR VOLUME 91.5 fl (80.0-96.0); MONO # 0.5 10^3/uL (0.0-0.8); MONO % 6.2 % (2.0-8.0); NEUTROPHILS # 4.4 10^3/uL (1.5-8.5); NEUTROPHILS % 58.6 % (36.0-66.0); PLATELET COUNT, AUTOMATED 258 10^3/uL (150-450); RED BLOOD COUNT 4.85 10^6/uL (4.00-5.40); WHITE BLOOD COUNT 7.5 10^3/uL (4.0-10.0)
[2024-05-03 13:43] LABS: CK-MB VALUE MASS < 1.0 NG/ML (<3.6); LIPASE 51 U/L (12-53)
[2024-05-03 13:45] LABS: ALBUMIN 4.3 G/DL (3.2-5.2); ALKALINE PHOSPHATASE 76 U/L (35-104); ALT/SGPT 18 U/L (7.0-40); AST/SGOT 18 U/L (<34); BILIRUBIN,DIRECT 0.1 MG/DL (<0.4); BILIRUBIN,TOTAL 0.5 MG/DL (0.3-1.2); BLOOD UREA NITROGEN 11 MG/DL (9-23); CALCIUM LEVEL 9.7 MG/DL (8.5-10.1); CARBON DIOXIDE LEVEL 24 MMOL/L (20-31); CHLORIDE LEVEL 110 MMOL/L (98-107); CREATININE FOR GFR 0.63 MG/DL (0.55-1.30); GLOMERULAR FILTRATION RATE > 60.0 (>58); GLUCOSE, FASTING 81 MG/DL (60-100); POTASSIUM SERUM 4.3 MMOL/L (3.5-5.1); SODIUM LEVEL 142 MMOL/L (136-145); TOTAL PROTEIN 7.5 G/DL (5.7-8.2)
[2024-05-03 13:48] LABS: CPK CREATINE PHOSPHOKINASE 112 U/L (34-145); MB/CK RELATIVE INDEX 0.89 (< OR =4)
[2024-05-03] MEDS: KETOROLAC 30 MG/ML 1ML VIAL IV ONE (14:10)
[2024-05-03] MEDS ORDERED: ISOVUE-370 76% 100ML VIAL As Ordered ONE (14:17)
[2024-05-03 14:47] LABS: CK-MB VALUE MASS < 1.0 NG/ML (<3.6)
[2024-05-03 14:52] LABS: CPK CREATINE PHOSPHOKINASE 110 U/L (34-145)
[2024-05-03 15:41] LABS: ERYTHROCYTE SEDIMENTATION RATE 8 mm/hr (0-20)
[2024-05-03] MEDS: LIDOCAINE VISCOUS 2% SOLN 15ML UDC PO ONE (16:09)
[2024-05-03] MEDS: MAALOX 30 ML SUSP *UDC PO ONE (16:09)
[2024-05-03] MEDS: SUCRALFATE SUSP 1GM/10ML UD PO ONE (16:09)
[2024-05-03] MEDS: PANTOPRAZOLE 40MG VIAL IV ONE (16:09)
[2024-05-03] MEDS ORDERED: SUCR1SS PO (16:17)
[2024-05-03] MEDS ORDERED: PROT1TAB2 PO (16:18)
[2024-05-03 16:30] VITALS: BP 146/83; TEMP 98.5; O2SAT 98
== END 2024-05-03 16:48 | disposition home or self-care (01) ==
LOC: M ED 12:12
DX: R07.9 Chest pain, unspecified (principal); I45.10 Unspecified right bundle-branch block; F31.9 Bipolar disorder, unspecified; Z87.891 Personal history of nicotine dependence; Z88.5 Allergy status to narcotic agent; Z88.8 Allergy status to other drugs, medicaments and biological substances; Z79.2 Long term (current) use of antibiotics; Z79.1 Long term (current) use of non-steroidal anti-inflammatories (NSAID); Z79.899 Other long term (current) drug therapy
CPT/HCPCS: 71045; 71275; 80048; 80076; 82550; 82553; 83690; 84484; 85025; 85652; 93005; 93041; 94760; 96374; 96375; 99285; J1885; J2470; Q9967

== ENCOUNTER → 2024-06-12 | Outpatient (REF) | payer OTHER ==
[~2024-06-12] MED LIST changes: +PROT1TAB2 PO; +SUCR1SS PO
[2024-06-12 18:01] LABS: BASO # 0.1 10^3/uL (0.0-0.2); BASO % 0.6 % (0.0-1.0); EOS # 0.4 10^3/uL (0.0-0.5); EOS % 4.8 % (0.0-3.0); HEMATOCRIT 43.4 % (36.0-47.0); HEMOGLOBIN 14.2 g/dl (12.0-15.5); LYMPH # 2.9 10^3/uL (1.5-5.0); LYMPH % 35.6 % (24.0-44.0); MEAN CORPUSCULAR HEMOGLOBIN 31.1 pg (27.0-33.0); MEAN CORPUSCULAR HGB CONC 32.7 g/dl (32.0-36.5); MONO # 0.6 10^3/uL (0.0-0.8); MONO % 7.3 % (2.0-8.0); NEUTROPHILS # 4.2 10^3/uL (1.5-8.5); NEUTROPHILS % 51.6 % (36.0-66.0); PLATELET COUNT, AUTOMATED 257 10^3/uL (150-450); RED BLOOD COUNT 4.57 10^6/uL (4.00-5.40); WHITE BLOOD COUNT 8.1 10^3/uL (4.0-10.0)
[2024-06-12 18:14] LABS: HEMOGLOBIN A1c 4.8 % (4.0-6.0)
[2024-06-12 18:24] LABS: ALBUMIN 4.3 G/DL (3.2-5.2); ALKALINE PHOSPHATASE 74 U/L (35-104); ALT/SGPT 16 U/L (7.0-40); AST/SGOT 10 U/L (<34); BILIRUBIN,TOTAL 0.5 MG/DL (0.3-1.2); BLOOD UREA NITROGEN 13 MG/DL (9-23); CALCIUM LEVEL 9.4 MG/DL (8.5-10.1); CARBON DIOXIDE LEVEL 33 MMOL/L (20-31); CHLORIDE LEVEL 109 MMOL/L (98-107); CHOLESTEROL LEVEL 179 MG/DL (<200); CHOLESTEROL RISK RATIO 2.92 (<5); CREATININE FOR GFR 0.79 MG/DL (0.55-1.30); GLOMERULAR FILTRATION RATE > 60.0 (>58); GLUCOSE, FASTING 78 MG/DL (60-100); HDL CHOLESTEROL 61.3 MG/DL (>40); LDL CHOLESTEROL 95.9 MG/DL (<100); MAGNESIUM LEVEL 2.2 MG/DL (1.8-2.4); NON-HDL-C 117.7 MG/DL; POTASSIUM SERUM 4.4 MMOL/L (3.5-5.1); SODIUM LEVEL 146 MMOL/L (136-145); TOTAL PROTEIN 7.1 G/DL (5.7-8.2); TRIGLYCERIDES LEVEL 109 MG/DL (<150)
== END ==
LOC: M SFHCCLAY 13:24
PROVIDERS: ATTEND Nurse Practitioner Family
DX: F32.A Depression, unspecified (principal); R19.7 Diarrhea, unspecified; F41.9 Anxiety disorder, unspecified; R91.1 Solitary pulmonary nodule

== ENCOUNTER → 2024-07-02 | Outpatient (CLI) | payer OTHER ==
[~2024-07-02] MED LIST changes: +ISOVUE-370 76% 100ML VIAL As Ordered ONE
== END ==
LOC: M RAD 08:13
PROVIDERS: ATTEND Nurse Practitioner Family
DX: R91.8 Other nonspecific abnormal finding of lung field (principal); R19.7 Diarrhea, unspecified; K76.0 Fatty (change of) liver, not elsewhere classified; R16.0 Hepatomegaly, not elsewhere classified; K57.30 Diverticulosis of large intestine without perforation or abscess without bleeding
CPT/HCPCS: 71250; 74177; Q9967

== ENCOUNTER → 2024-07-08 | Outpatient (REF) | payer OTHER ==
[~2024-07-08] MED LIST changes: -ISOVUE-370 76% 100ML VIAL As Ordered ONE
[2024-07-08 14:40] LABS: C REACTIVE PROTEIN QUANTITATIV < 0.50 MG/DL (<1.0); RHEUMATOID FACTOR QUANT < 3.5 IU/ML (<14)
[2024-07-10 12:59] LABS: CYCLIC CITRULLINATED PEPTIDE < 16 UNITS (<20)
[2024-07-10 14:47] LABS: ANA SCREEN, IFA NEGATIVE (NEGATIVE)
[2024-07-10 15:07] LABS: RNP ANTIBODY <1.0 NEG AI (<1.0 NEG); SM ANTIBODY <1.0 NEG AI (<1.0 NEG); SSA SJOGRENS A <1.0 NEG AI (<1.0 NEG); SSB SJOGRENS B <1.0 NEG AI (<1.0 NEG)
== END ==
LOC: M LAB REF 12:19
PROVIDERS: ATTEND Internal Medicine Pulmonary Disease
DX: R91.8 Other nonspecific abnormal finding of lung field (principal)

== ENCOUNTER → 2024-07-09 | Outpatient (REF) | payer OTHER | LOC: M LABDRWAD 13:07 | PROVIDERS: ATTEND Internal Medicine Pulmonary Disease | DX: R91.8 Other nonspecific abnormal finding of lung field (principal) ==

== ENCOUNTER → 2024-07-29 | Outpatient (CLI) | payer OTHER | LOC: M PLARAD 11:40 | PROVIDERS: ATTEND Nurse Practitioner Family | DX: R91.8 Other nonspecific abnormal finding of lung field (principal) | CPT/HCPCS: 78815; A9552 ==

== ENCOUNTER → 2024-12-14 | Outpatient (CLI) | payer OTHER | LOC: M RAD 08:12 | PROVIDERS: ATTEND Pain Medicine Interventional Pain Medicine | DX: M47.812 Spondylosis without myelopathy or radiculopathy, cervical region (principal); M48.02 Spinal stenosis, cervical region ==

== ENCOUNTER 2025-01-07 09:06 | Observation (INO) | payer OTHER ==
[~2025-01-07] VITALS: Ht 172.7 cm; Wt 85.2 kg
[~2025-01-07 09:06] MED LIST changes: +SERTRALINE HCL 50 MG TAB PO SCH
[2025-01-07] MEDS ORDERED: ADVA230A PO (09:13)
[2025-01-07] MEDS ORDERED: ALBU8.5H PO (09:13)
[2025-01-07] MEDS ORDERED: SERT50TA29 PO (09:13)
[2025-01-07 10:08] LABS: BASO # 0.1 10^3/uL (0.0-0.2); BASO % 0.8 % (0.0-1.0); EOS # 0.4 10^3/uL (0.0-0.5); EOS % 5.8 % (0.0-3.0); LYMPH # 2.6 10^3/uL (1.5-5.0); LYMPH % 40.2 % (24.0-44.0); MONO # 0.5 10^3/uL (0.0-0.8); MONO % 8.5 % (2.0-8.0); NEUTROPHILS # 2.8 10^3/uL (1.5-8.5); NEUTROPHILS % 44.5 % (36.0-66.0); PLATELET COUNT, AUTOMATED 254 10^3/uL (150-450)
[2025-01-07 10:28] LABS: ALT/SGPT 17.0 U/L (7.0-40); AST/SGOT 16.0 U/L (<34)
[2025-01-07] MEDS ORDERED: COLA100C5 PO (10:43)
[2025-01-07] MEDS ORDERED: HOME MED LIST COMPLETE! XX SCH (10:45)
[2025-01-07] MEDS: ACETAMINOPHEN *IV* 1,000 MG in IV 1 EA IV ONE (11:00)
[2025-01-07] MEDS ORDERED: ISOVUE-370 76% 100 ML VIAL As Ordered ONE (11:03)
[2025-01-07 11:04] LABS: KETONE, URINE AUTO RFX NEGATIVE (NEGATIVE); LEUKOCYTE ESTERASE UR AUTO RFX NEGATIVE (NEGATIVE); NITRITE, URINE AUTO RFX NEGATIVE (NEGATIVE); RBC, URINE AUTO RFX 0 /HPF (0-3); SQUAM EPITHELIAL CELL UR AURFX 0 /HPF (0-6); WBC, URINE AUTO RFX 0 /HPF (0-3)
[2025-01-07] MEDS: ONDANSETRON 4MG 2ML VIAL IV ONE (11:41)
[2025-01-07] MEDS ORDERED: ALBUTEROL 90 MCG/ACT 8 GM HFA INHALER INH PRN (14:20)
[2025-01-07 15:40] VITALS: BP 136/70; TEMP 98.2; O2SAT 94
[2025-01-07] MEDS: ONDANSETRON 4MG 2ML VIAL IV PRN (18:56)
[2025-01-07] MEDS: ADVAIR HFA 230/21 MCG INHALER INH SCH (19:28)
[2025-01-07 19:56] VITALS: BP 128/75; TEMP 98.1; O2SAT 100
[2025-01-07] MEDS: SERTRALINE HCL 50 MG TAB PO SCH (20:27)
[2025-01-07] MEDS: DOCUSATE SODIUM 100 MG CAPSULE PO SCH (20:27)
[2025-01-07] MEDS: FAMOTIDINE 20 MG TAB PO SCH (20:27)
[2025-01-07] MEDS: HEPARIN SOD 5000 UNITS/ML 1 ML VIAL/SYRINGE SC SCH (20:28)
[2025-01-07] MEDS: HYDROMORPHONE HCL 0.5 MG/0.5 ML SYRINGE IV PRN (20:36)
[2025-01-08 04:00] VITALS: TEMP 97.1; O2SAT 99
[2025-01-08 08:46] LABS: ALT/SGPT 21 U/L (7.0-40); AST/SGOT 29 U/L (<34); CALCIUM LEVEL 9.3 MG/DL (8.5-10.1); CARBON DIOXIDE LEVEL 22 MMOL/L (20-31); CHLORIDE LEVEL 110 MMOL/L (98-107); CREATININE FOR GFR 0.68 MG/DL (0.55-1.30); GLOMERULAR FILTRATION RATE > 90.0 (>51); POTASSIUM SERUM 4.8 MMOL/L (3.5-5.1); SODIUM LEVEL 143 MMOL/L (136-145)
[2025-01-08] MEDS: METAMUCIL PACKET PO SCH (09:09)
[2025-01-08 10:12] LABS: PLATELET COUNT, AUTOMATED 278 10^3/uL (150-450)
[2025-01-08 12:00] VITALS: TEMP 97.5; O2SAT 99
== END 2025-01-08 13:58 | disposition home or self-care (01) ==
LOC: M ED 09:52 → M ED INP 09:53 → M MS4PR 15:40
PROVIDERS: ADMIT Internal Medicine; ATTEND Internal Medicine
DX: R10.9 Unspecified abdominal pain (principal); R11.2 Nausea with vomiting, unspecified; K57.30 Diverticulosis of large intestine without perforation or abscess without bleeding; K76.0 Fatty (change of) liver, not elsewhere classified; Z90.49 Acquired absence of other specified parts of digestive tract; Z98.890 Other specified postprocedural states; F31.9 Bipolar disorder, unspecified; E03.9 Hypothyroidism, unspecified; G43.909 Migraine, unspecified, not intractable, without status migrainosus; R91.1 Solitary pulmonary nodule; N60.19 Diffuse cystic mastopathy of unspecified breast; N80.9 Endometriosis, unspecified; R07.9 Chest pain, unspecified; Z90.89 Acquired absence of other organs; Z98.51 Tubal ligation status; Z90.79 Acquired absence of other genital organ(s); Z90.721 Acquired absence of ovaries, unilateral; Z86.19 Personal history of other infectious and parasitic diseases; Z85.3 Personal history of malignant neoplasm of breast; Z82.49 Family history of ischemic heart disease and other diseases of the circulatory system; Z83.3 Family history of diabetes mellitus; Z83.79 Family history of other diseases of the digestive system; Z82.0 Family history of epilepsy and other diseases of the nervous system; Z88.5 Allergy status to narcotic agent; Z88.8 Allergy status to other drugs, medicaments and biological substances; Z79.899 Other long term (current) drug therapy
CPT/HCPCS: 36415; 74177; 80047; 80053; 80076; 81001; 83605; 83690; 85025; 85027; 94640; 96365; 96372; 96375; 96376; 99284; J0131; J1171; J2405; J3010; Q9967

== ENCOUNTER → 2025-01-29 | Outpatient (CLI) | payer OTHER ==
[~2025-01-29] MED LIST changes: +ADVA230A PO; +ALBU8.5H PO; +SERT50TA29 PO; -SERTRALINE HCL 50 MG TAB PO SCH
== END ==
LOC: M RAD 15:15
PROVIDERS: ATTEND Physician Assistant
DX: I73.9 Peripheral vascular disease, unspecified (principal)

== ENCOUNTER → 2025-02-27 | Outpatient (CLI) | payer OTHER | LOC: M PLAIMG 08:34 | PROVIDERS: ATTEND Physician Assistant | DX: R94.31 Abnormal electrocardiogram [ECG] [EKG] (principal) ==

== ENCOUNTER → 2025-03-25 | Outpatient (CLI) | payer OTHER | LOC: M PLAIMG 09:15 | PROVIDERS: ATTEND Pain Medicine Interventional Pain Medicine | DX: M54.14 Radiculopathy, thoracic region (principal) ==